=== PATIENT | male | born 1980 | race Caucasian/White ===

== ENCOUNTER → 2021-07-12 | Outpatient (CLI) | payer SELFPAY ==
[~2021-07-12] MED LIST: CASIRIVIMAB/IMDEVIMAB (EUA) 1,200 MG in SODIUM CHLORIDE 0.9% 100 ML IVPB ONE; SODIUM CHLORIDE 0.9% 50 ML IVPB ONE; SODIUM CHLORIDE 0.9% 500 ML 500 ML in EMPTY BAG 1 BAG IV PRN
[2021-07-12 14:25] VITALS: BP 127/69; PULSE 68; RESP 16; TEMP 97.9
== END ==
LOC: PROCWHC3 12:59
PROVIDERS: ATTEND Family Medicine
DX: U07.1 COVID-19 (principal); E66.9 Obesity, unspecified; Z68.25 Body mass index [BMI] 25.0-25.9, adult
CPT/HCPCS: 96360; Q0243; M0243; 96361